=== PATIENT | female | born 1985 | race Caucasian/White ===

== ENCOUNTER 2018-12-04 12:41 | Inpatient (IN) | payer SELFPAY ==
[~2018-12-04] VITALS: Ht 165.1 cm; Wt 80.0 kg
[2018-12-04] MEDS ORDERED: SODIUM CHLORIDE 0.9% 1,000 ML IVB ONE (12:48)
[2018-12-04] MEDS ORDERED: MORPHINE SULFATE 4 MG/ML SYR/VIAL IV ONE (13:00)
[2018-12-04] MEDS ORDERED: ONDANSETRON HCL 4 MG/2 ML VIAL IV ONE (13:00)
[2018-12-04] MEDS ORDERED: FAMOTIDINE (10MG/ML) 2ML VL IV ONE (13:00)
[2018-12-04 13:27] LABS: Basophils # (auto) 0 uL; Basophils % (auto) 0.3 % (0.0-2.0); Eosinophils # (auto) 0.1 uL; Eosinophils % (auto) 0.7 % (0.0-7.0); Hematocrit 46.6 % (36.0-46.0); Hemoglobin 15.6 g/dL (12.2-16.2); Lymphocytes # (auto) 1.2 uL; Lymphocytes % (auto) 7.9 % (10.0-50.0); Mean Corpuscular Hemoglobin 29.3 pg (28.0-32.0); Mean Corpuscular Hgb Conc. 33.5 g/dL (32.0-36.0); Mean Corpuscular Volume 87.4 fL (80.0-100.0); Monocytes # (auto) 1.1 uL; Monocytes % (auto) 7.4 % (0.0-12.0); Neutrophils # (auto) 12.2 uL; Neutrophils % (auto) 83.7 % (37.0-80.0); Nucleated Red Blood Cells % 0.1 %; Platelet Count (auto) 248 10^3/uL (140-450); Red Blood Cells 5.33 10^6/uL (4.0-5.20); Red Cell Distribution Width 14.1 % (11.8-14.3); White Blood Cell 14.6 10^3/uL (4.4-10.8)
[2018-12-04 14:09] LABS: Albumin 3.9 g/dL (3.4-5.0); BUN/Creatinine Ratio 17.2; Calcium 8.9 mg/dL (8.5-10.1); Potassium 3.4 mmol/L (3.5-5.1)
[2018-12-04 14:12] LABS: Bilirubin, Total 6.7 mg/dL (0.2-1.0); Total Protein 7.7 g/dL (6.4-8.2)
[2018-12-04] MEDS ORDERED: NITROGLYCERIN 0.4 MG SL TAB SL PRN (15:30)
[2018-12-04] MEDS ORDERED: ONDANSETRON HCL 4 MG/2 ML VIAL IV PRN (15:30)
[2018-12-04] MEDS ORDERED: MORPHINE SULF INJ 2 MG/ML SYRINGE 1ML IV PRN (15:30)
[2018-12-04] MEDS ORDERED: LORazepam 2MG/ML-1ML VIAL IV ONE (15:30)
[2018-12-04] MEDS ORDERED: POTASSIUM CHLORIDE 20 MEQ in D5W/LACTATED RINGERS 1,000 ML IV SCH (15:30)
[2018-12-04 16:09] LABS: INR 1.01 (0.9-1.15); Partial Thromboplastin Time 24.8 sec (23.64-32.05)
[2018-12-04] MEDS: MORPHINE SULFATE 4 MG/ML SYR/VIAL IV PRN ×2 (16:29→21:10)
--- NOTE | 2018-12-04 17:41 | NUR ---
MS admit from ER SARAH SIMS admitted to tele/MS after SBAR received. Patient oriented to primary RN, unit, room, bed, and unit policies regarding patient care and visiting hours. Patient weighed by bed scale and encouraged to call if they need something. All questions and concerns addressed, patient verbalized understanding.VITAL SIGNS TAKEN TEMP 97.9,PR87,RR14,02 SAT ROOM AIR 94%,BP 115/76 PAIN SCALE OF 4.
--- NOTE | 2018-12-04 19:20 | NUR ---
opening shift note Assumed care of patient who is A&Ox4. Currently on room air. No distress noted. Reports 6/10 pain in right upper quadrant. Pain management options discussed with patient. POC discussed and all questions answered. Bed is in low locked position with side rails up x2. Call light is within reach. Patient is NPO for procedure tomorrow. Will continue to monitor for changes PRN.
[2018-12-04 19:56] VITALS: BP 115/76
[2018-12-04 22:00] VITALS: BP 113/81
[2018-12-04] MEDS: FAMOTIDINE (10MG/ML) 2ML VL IV SCH (22:17)
[2018-12-04 22:33] VITALS: BP 131/78
[2018-12-05] MEDS: MORPHINE SULFATE 4 MG/ML SYR/VIAL IV PRN ×5 (01:34→22:22)
[2018-12-05 05:31] VITALS: BP 115/80
[2018-12-05] MEDS: PIPERACILLIN-TAZOB 3.375GM 100 ML IV SCH ×4 (05:57→18:18)
--- NOTE | 2018-12-05 06:11 | NUR ---
Urine sample collected and sent to lab
[2018-12-05 07:01] LABS: Basophils # (auto) 0 uL; Basophils % (auto) 0.1 % (0.0-2.0); Eosinophils # (auto) 0 uL; Eosinophils % (auto) 0.4 % (0.0-7.0); Hematocrit 42.9 % (36.0-46.0); Hemoglobin 14.5 g/dL (12.2-16.2); Lymphocytes % (auto) 12.7 % (10.0-50.0); Mean Corpuscular Hemoglobin 29.9 pg (28.0-32.0); Mean Corpuscular Hgb Conc. 33.9 g/dL (32.0-36.0); Mean Corpuscular Volume 88.2 fL (80.0-100.0); Monocytes # (auto) 0.7 uL; Neutrophils # (auto) 6.4 uL; Neutrophils % (auto) 77.8 % (37.0-80.0); Nucleated Red Blood Cells % 0.1 %; Platelet Count (auto) 229 10^3/uL (140-450); Red Blood Cells 4.86 10^6/uL (4.0-5.20); Red Cell Distribution Width 14.3 % (11.8-14.3); White Blood Cell 8.2 10^3/uL (4.4-10.8)
[2018-12-05 07:12] LABS: Urine Amorphous Crystal FEW /hpf (None Seen); Urine Bacteria NONE SEEN /hpf (None Seen); Urine Blood 2+ /uL (Negative); Urine Mucus FEW (None Seen); Urine Specific Gravity 1.022 (1.001-1.035); Urine WBC 2 /hpf (0 - 5)
--- NOTE | 2018-12-05 07:15 | NUR ---
Opening Shift Note Report received and assumed care of patient, awake and alert. No S/S of distress/SOB . Bed in lowest locked position, side rails up x2, call light within reach. Instructed on POC and to call for assist PRN, will continue to monitor for changes Q1hr and PRN.
[2018-12-05 07:18] LABS: Potassium 3.5 mmol/L (3.5-5.1)
[2018-12-05 07:21] LABS: Albumin 3.5 g/dL (3.4-5.0); BUN/Creatinine Ratio 12.9; Calcium 8.3 mg/dL (8.5-10.1)
[2018-12-05 07:30] LABS: Bilirubin, Total 5.4 mg/dL (0.2-1.0)
--- NOTE | 2018-12-05 08:25 | NUR ---
C/O PAIN ,MEDICATED SEE eMAR
--- NOTE | 2018-12-05 08:30 | NUR ---
TO MRI DEPT. FOR MRCP
[2018-12-05 09:00] VITALS: BP 123/75
[2018-12-05] MEDS: FAMOTIDINE (10MG/ML) 2ML VL IV SCH ×2 (10:24→22:21)
[2018-12-05 13:00] VITALS: BP 116/71
[2018-12-05 17:00] VITALS: BP 126/78
--- NOTE | 2018-12-05 19:20 | NUR ---
OPENING SHIFT NOTE Assumed care of patient. Family is at the bedside at this time. Patient is A&Ox4; Currently on RA with no s/s of distress. Reports 5/10 pain in upper left quadrant. Heat packs provided, as pain medication is not due at this time. Patient is able to ambulate independently without the use of assistive devices. POC discussed with patient who verbalizes understanding. Bed is in low locked position with side rails up x2. Call light is within reach. Encouraged to call for assistance when needed. Patient instructed to continue NPO status for surgical procedure with Dr. Gonzalez tomorrow.Verbalizes understanding. Will continue to monitor for changes PRN.
--- NOTE | 2018-12-05 19:20 | NUR ---
No distress no discomfort,report given to incoming noc shift RN
[2018-12-05 22:00] VITALS: BP 117/77
[2018-12-06] MEDS: PIPERACILLIN-TAZOB 3.375GM 100 ML IV SCH ×2 (00:29→05:48)
[2018-12-06] MEDS: MORPHINE SULFATE 4 MG/ML SYR/VIAL IV PRN ×2 (04:20→11:40)
[2018-12-06 05:00] VITALS: BP 109/67
[2018-12-06 07:04] LABS: Basophils # (auto) 0.1 uL; Basophils % (auto) 0.7 % (0.0-2.0); Eosinophils # (auto) 0.1 uL; Eosinophils % (auto) 1.1 % (0.0-7.0); Hematocrit 37.4 % (36.0-46.0); Hemoglobin 12.8 g/dL (12.2-16.2); Lymphocytes # (auto) 1.4 uL; Lymphocytes % (auto) 16.3 % (10.0-50.0); Mean Corpuscular Hemoglobin 30.1 pg (28.0-32.0); Mean Corpuscular Hgb Conc. 34.2 g/dL (32.0-36.0); Monocytes # (auto) 0.7 uL; Monocytes % (auto) 7.8 % (0.0-12.0); Neutrophils # (auto) 6.2 uL; Neutrophils % (auto) 74.1 % (37.0-80.0); Platelet Count (auto) 208 10^3/uL (140-450); Red Blood Cells 4.25 10^6/uL (4.0-5.20); Red Cell Distribution Width 14.1 % (11.8-14.3); White Blood Cell 8.4 10^3/uL (4.4-10.8)
[2018-12-06 07:24] LABS: Amylase 365 U/L (25-115); BUN/Creatinine Ratio 20.8; Calcium 8.4 mg/dL (8.5-10.1); Potassium 3.4 mmol/L (3.5-5.1)
[2018-12-06 07:35] LABS: Lipase 1458 U/L (73-393)
[2018-12-06 09:00] VITALS: BP 111/70
[2018-12-06] MEDS: FAMOTIDINE (10MG/ML) 2ML VL IV SCH ×2 (10:20→21:50)
--- NOTE | 2018-12-06 11:57 | NUR ---
PT TAKEN TO OR AWAKE AOX4. MOTHER AT BEDSIDE. NO DISTRESS NOTED. VERBALIZED COMFORT.
[2018-12-06] MEDS: POTASSIUM CHLORIDE 20 MEQ in D5W/LACTATED RINGERS 1,000 ML IV SCH ×2 (12:00→20:27)
[2018-12-06] MEDS ORDERED: LIDOCAINE 1% (LOCAL ANESTH.) PF 5ml SDV ONE (12:00)
[2018-12-06] MEDS ORDERED: SUCCINYLCHOLINE CHLORIDE 20 MG/ML 10ML VIAL IV ONE (12:00)
[2018-12-06] MEDS ORDERED: MIDAZOLAM HCL 1MG/1ML-2 ML VIAL ONE (12:02)
[2018-12-06] MEDS ORDERED: ROCURONIUM 10MG/ML 10ML VIAL IV ONE (12:02)
[2018-12-06] MEDS ORDERED: PROPOFOL 10 MG/ML 20 ML IV ONE (12:02)
[2018-12-06] MEDS ORDERED: ceFAZolin 1GM/50ML 50 ML IV ONE (12:03)
[2018-12-06] MEDS ORDERED: METOCLOPRAMIDE HCL 5MG/ml INJ 2ml VIAL ONE (12:07)
[2018-12-06] MEDS ORDERED: fentaNYL CITRATE 100 MCG/2 ML VL ONE (12:16)
[2018-12-06] MEDS ORDERED: HYDROmorphone HCL 2 MG/ML VL IV PRN ×2 (12:30)
[2018-12-06] MEDS ORDERED: NALOXONE HCL 0.4 MG/ML VIAL IV PRN (12:30)
[2018-12-06] MEDS ORDERED: ONDANSETRON HCL 4 MG/2 ML VIAL IV PRN (12:30)
[2018-12-06] MEDS ORDERED: GLYCOPYRROLATE 0.2 MG/ML 1ML VIAL ONE ×2 (12:50→12:52)
[2018-12-06] MEDS ORDERED: NEOSTIGMINE 1 MG/ML INJ (10mg/10ML VIAL) ONE (12:50)
--- NOTE | 2018-12-06 13:30 | NUR ---
RECEIVED PT FROM O.R. PT AWAKE,AOX4. VERBALIZED COMFORT AND FEELING TIRED AT THIS TIME. DENIES PAIN. AT BEDSIDE. 3 SMALL DRESSING FROM LAP CHOLECYSTECTOMY NOTED, CDI EXCEPT FOR THE DRESSING IN THE MIDDLE OF ABDOMEN THAT HAVE MINIMAL BLOOD.
--- NOTE | 2018-12-06 13:58 | NUR ---
PT POST OP NOTES PT HOOKED UP ON SCDs AND BEEN GIVEN AN INCENTIVE SPIROMETER WITH USAGE DIRECTIONS. DISCUSS PAIN INFORMATION WITH PT AND MADE HER AWARE THAT SHE WILL HAVE SOME GAS PAIN DUE TO THE PROCEDURE. PT IS ENCOURAGED TO AMBULATE SOON SHE CAN BUT TO CALL FOR ASSIST IF NEEDED OR UNSURE. PT AND BOTH VERBALIZED UNDERSTANDING.
--- NOTE | 2018-12-06 14:30 | NUR ---
DIET TOLERATED CLEAR LIQUID DIET TOLERATED WELL. PT DENIES PAIN, NAUSEA OR VOMITING.
[2018-12-06 17:00] VITALS: BP 127/81
--- NOTE | 2018-12-06 17:00 | NUR ---
AMBULATION PT AMBULATED TO THE BATHROOM FOR THE FIRST TIME SINCE COMING BACK FROM SURGERY TODAY. PT TOLERATED THE ACTIVITY VERY WELL. ABDOMINAL BINDER IN PLACE.
--- NOTE | 2018-12-06 17:15 | NUR ---
IV insertion IV access obtained, via clean sterile technique by inserting 20 gauge catheter atRIGHT FOREARM after 1 attempt(s). IV secured properly. No trauma to site. Patient tolerated well. NOTE: IV removal PREVIOUS IV ON RIGHT AC DC'd with clean sterile technique, catheter fully intact. Pressure dressing applied to site. Patient tolerated well. NOTE:
--- NOTE | 2018-12-06 17:40 | NUR ---
DIET ADVANCED TO FULL LIQUID PER PT'S REQUEST SINCE CLEAR LIQUID IS BEING TOLERATED VERY WELL.
--- NOTE | 2018-12-06 19:20 | NUR ---
RECEIVED PATIENT FROM DAY SHIFT RN. PATIENT RESTING IN BED. FAMILY AT BEDSIDE. NO S/S OF DISTRESS NOTED. C/O ABD PAIN @ 04/23. PATIENT UNDERSTOOD THAT SHE COULD ASK FOR PAIN MEDICATION IF SHE COULD NOT TOLERATE THE PAIN. ABD BINDER IN PLACE, DRESSING D/I. SCD AND IS IN PLACE. POC INSTRUCTED AND ENCOURAGED PATIENT TO CALL FOR MANAGER HIV IF NEEDED. BED IN LOWEST POSITION WITH SIDE RAILS UP X 2. CALL MASSEY WITHIN REACH. ALARM ON. CONTINUE TO MONITOR FOR CHANGES Q1H AND PRN.
[2018-12-06 22:00] VITALS: BP 126/76
--- NOTE | 2018-12-06 23:55 | NUR ---
PATIENT WALKED TO BATHROOM WITH STEADY GAIT. NO S/S OF DISTRESS NOTED. CONTINUE CARE.
--- NOTE | 2018-12-07 03:55 | NUR ---
PATIENT SLEEPING. NO S/S OF DISTRESS NOTED. CONTINUE CARE.
[2018-12-07 05:06] VITALS: BP 155/76
[2018-12-07 05:45] VITALS: BP 124/72
--- NOTE | 2018-12-07 07:47 | NUR ---
Opening Note Assumed pt care from [facility] nurse. Pt is a/ox4 with no s/s of distress or SOB. Pt is currently sitting upright in bed with no complaints. Abdominal binder is on. Incisions are clean dry and intact; incision above belly button dressing has old sanguinous drainage. Discussed POC with pt; pt verbalized understanding. Safety measures maintained with call light within reach, bed in lowest position and side rails up. Will continue to monitor for changes q1hr and prn.
[2018-12-07 08:03] LABS: Basophils # (auto) 0 uL; Basophils % (auto) 0.5 % (0.0-2.0); Eosinophils # (auto) 0.1 uL; Eosinophils % (auto) 0.9 % (0.0-7.0); Hemoglobin 13.2 g/dL (12.2-16.2); Lymphocytes # (auto) 1.4 uL; Lymphocytes % (auto) 18.8 % (10.0-50.0); Mean Corpuscular Hgb Conc. 33.9 g/dL (32.0-36.0); Mean Corpuscular Volume 88.4 fL (80.0-100.0); Monocytes # (auto) 0.5 uL; Monocytes % (auto) 6.9 % (0.0-12.0); Neutrophils # (auto) 5.3 uL; Neutrophils % (auto) 72.9 % (37.0-80.0); Nucleated Red Blood Cells % 0.1 %; Platelet Count (auto) 241 10^3/uL (140-450); Red Blood Cells 4.41 10^6/uL (4.0-5.20); White Blood Cell 7.2 10^3/uL (4.4-10.8)
[2018-12-07 08:21] LABS: Albumin 3.1 g/dL (3.4-5.0); BUN/Creatinine Ratio 10.2; Calcium 8.2 mg/dL (8.5-10.1); Potassium 3.7 mmol/L (3.5-5.1)
[2018-12-07 08:24] LABS: Bilirubin, Total 1.1 mg/dL (0.2-1.0)
[2018-12-07 09:00] VITALS: BP 122/79
[2018-12-07] MEDS: FAMOTIDINE (10MG/ML) 2ML VL IV SCH (09:53)
--- NOTE | 2018-12-07 10:40 | NUR ---
Dr Jimenez at Bedside Discussed with pt ability to d/c once cleared from surgery. Awaiting clearance to follow through with orders.
[2018-12-07] MEDS ORDERED: MET500T PO (10:56)
[2018-12-07] MEDS ORDERED: CIP250T PO (10:56)
[2018-12-07] MEDS ORDERED: ACET5SOL5 PO (10:56)
[2018-12-07] MEDS ORDERED: CIPROFLOXACIN HYDROCHLORIDE 250 MG TAB PO SCH (11:00)
[2018-12-07] MEDS ORDERED: metroNIDAZOLE 500 MG TAB PO SCH (11:00)
[2018-12-07 13:00] VITALS: BP 122/82
--- NOTE | 2018-12-07 13:46 | NUR ---
Dr Gonzalez at Bedside Cleared pt to go home. Will continue with d/c orders.
--- NOTE | 2018-12-07 14:00 | NUR ---
IV D/C'ed IV removed from pt's R FA. Catheter removed fully intact. Site is asymptomatic. Pressure applied to site for 3 minutes and then wrapped in coban. Pt instructed to keep dressing on for 30 minutes. Pt verbalized understanding.
--- NOTE | 2018-12-07 14:12 | NUR ---
Pt D/C'ed off Unit Pt ambulated off unit with all belongings, education material, prescriptions and follow up information. IV removed from pt.
== END 2018-12-07 14:12 | disposition home or self-care (01) | DRG 853 ==
LOC: EDBD 12:41 → ER 12:47 → OVERFLOW 12:48 → CENTRAL 17:52
PROVIDERS: ADMIT Nurse Practitioner Acute Care; ATTEND Internal Medicine Nephrology
PROC: 0FT44ZZ Resection of Gallbladder, Percutaneous Endoscopic Approach (ICD-10-PCS; principal; 2018-12-06 12:02)
DX: A41.9 Sepsis, unspecified organism (principal); K85.10 Biliary acute pancreatitis without necrosis or infection; K80.12 Calculus of gallbladder with acute and chronic cholecystitis without obstruction; E87.6 Hypokalemia; R65.20 Severe sepsis without septic shock; R74.0 Nonspecific elevation of levels of transaminase and lactic acid dehydrogenase [LDH]; Z83.3 Family history of diabetes mellitus; Z82.49 Family history of ischemic heart disease and other diseases of the circulatory system; Z80.9 Family history of malignant neoplasm, unspecified; Z98.891 History of uterine scar from previous surgery
CPT/HCPCS: 36415; 71045; 74181; 76705; 80048; 80053; 81001; 82150; 82962; 83690; 84702; 85025; 85610; 85730; 86850; 86900; 86901; 87040; 94761; 96374; 96375; 96376; G0378; J0330; J0690; J2250; J2405; J2543; J2704; J3490